=== PATIENT | male | born 2005 | race Caucasian/White ===

== ENCOUNTER 2024-10-17 01:14 | Emergency (ER) | payer OTHER, SELFPAY ==
[2024-10-17 01:16] VITALS: BP 144/92; PULSE 80; RESP 16; TEMP 36.2; O2SAT 97; BMI 22.4
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
== END 2024-10-17 01:45 | disposition home or self-care (01) ==
LOC: ED 01:43
PROVIDERS: Emergency Provider Family Medicine
DX: S01.511A Laceration without foreign body of lip, initial encounter (principal); Y04.2XXA Assault by strike against or bumped into by another person, initial encounter
CPT/HCPCS: 99282